=== PATIENT | female | born 1975 ===

== ENCOUNTER → 2021-09-17 | Day surgery (SDC) | payer OTHER ==
[~2021-09-17] VITALS: Ht 167.6 cm; Wt 86.2 kg
[~2021-09-17] MED LIST: ALDACTONE50 MG PO; AMITIZA24 MCG PO; B COMPLEX1 EACH PO; BACLOFEN 10MG T10 MG PO; BOTOX100 UNIT IJ; CETIRIZINE HCL10 MG PO; CLONAZEPAM0.5 MG PO; COQ1050 MG PO; COZAAR50 MG PO; CYCLOBENZAPRINE5 MG PO; CYMBALTA 30MG C30 MG PO; KEPPRA250 MG PO; MAG-OXIDE 400M400 MG PO; MAXALT10 MG PO; MOVANTIK25 MG PO; NEURONTIN300 MG PO; NURTEC ODT75 MG PO; PEPCID AC20 MG PO; SINGULAIR10 MG PO; TOPAMAX100 MG PO; TRAMADOL HCL50 MG PO; VALACYCLOVIR1000 MG PO; VITAMIN D-40010 MCG PO; [UNRECOGNIZED DRUG - OTHER] PO
[2021-09-17 09:59] LABS: HCG (URINE) SCREEN NEGATIVE (NEGATIVE)
== END | disposition home or self-care (01) ==
LOC: FAS 08:00
PROVIDERS: Anesthesiology
DX: M24.611 Ankylosis, right shoulder (principal); M75.01 Adhesive capsulitis of right shoulder; G89.18 Other acute postprocedural pain; I10 Essential (primary) hypertension; K21.9 Gastro-esophageal reflux disease without esophagitis; Z88.5 Allergy status to narcotic agent; Z91.040 Latex allergy status
CPT/HCPCS: 84703; 97161; 97530-GP; J1885; J2250; J2795; J7120